=== PATIENT | male | born 1955 | race African-American/Black ===

== ENCOUNTER 2022-09-06 05:20 | Inpatient (IN) | payer OTHER ==
[~2022-09-06] VITALS: Ht 180.3 cm; Wt 103.9 kg
[2022-09-06] VITALS (23 sets, daily range): BP systolic 94–173; BP diastolic 39–82
--- NOTE | 2022-09-06 05:20 | NUR ---
PT BIBA ALS. TAKEN TO BED 10. DR. MAC AND RT AT BEDSIDE
--- NOTE | 2022-09-06 05:20 | NUR ---
Patient BIB by ALS from home. C/O respiratory arrest x today. Per reported, family called and arrived at home ~ 0455 AM, Alfred cardia ~ 40 and Oxygen sat 74 %, Bagging increase to 90 %, no medication given at the scence, started IV 20 left hand. PMHx: CHF, HTN, HLD
--- NOTE | 2022-09-06 05:20 | NUR ---
Etomidate 20 mg IV push as verbal order by Dr. Gonsales.
--- NOTE | 2022-09-06 05:20 | NUR ---
05.10 AM Arrived at ER and placed to bed 10.
--- NOTE | 2022-09-06 05:21 | NUR ---
Succinylcholine 100 mg IV push as verbal order by Dr. Gonsales
--- NOTE | 2022-09-06 05:28 | NUR ---
Intubation placement size 7.[address] Gonsales
--- NOTE | 2022-09-06 05:37 | NUR ---
X-Ray at bedside.
[2022-09-06] MEDS ORDERED: LORazepam 2 MG/ML VIAL ONE (05:39)
[2022-09-06] MEDS ORDERED: LORazepam 2 MG/ML VIAL IVP ONE (05:40)
[2022-09-06] MEDS ORDERED: fentaNYL citrate 0.05 MG/ML VIAL ONE (05:40)
[2022-09-06] MEDS ORDERED: fentaNYL citrate 0.05 MG/ML VIAL IVP ONE (05:40)
[2022-09-06] MEDS ORDERED: PROPOFOL 1000 MG/100 ML PREMIX 100 ML IV ONE ×2 (05:40→05:41)
[2022-09-06 05:48] LABS: BASOPHILS # (AUTO) 0.1 K/uL (0.00-0.22); BASOPHILS % (AUTO) 0.5 % (0.0-2.0); EOSINOPHILS % (AUTO) 0.3 % (0.0-4.0); HEMATOCRIT 34.8 % (36-52); HEMOGLOBIN 11.2 g/dL (12.0-18.0); LYMPHOCYTES # (AUTO) 3.6 K/uL (2.0-11.5); LYMPHOCYTES % (AUTO) 30.6 % (20.5-51.1); MEAN CORPUSCULAR HEMOGLOBIN 26 pg (27-31); MEAN CORPUSCULAR HGB CONC 32 g/dL (33-37); MEAN CORPUSCULAR VOLUME 79.8 fL (80-94); MONOCYTES # (AUTO) 0.5 K/uL (0.8-1.0); NEUTROPHILS # (AUTO) 7.6 K/uL (1.8-7.7); NEUTROPHILS % (AUTO) 64.6 % (42.2-75.2); PLATELET COUNT (AUTO) 169 K/uL (140-450); RED BLOOD CELL COUNT(AUTO) 4.37 MIL/uL (4.20-6.10); RED CELL DISTRIBUTION WIDTH 16.3 % (11.6-13.7); WHITE BLOOD COUNT (AUTO) 11.8 K/uL (4.8-10.8)
[2022-09-06] MEDS ORDERED: ISOS30TE68 PO (05:52)
[2022-09-06] MEDS ORDERED: FURO-570 PO (05:52)
[2022-09-06] MEDS ORDERED: ATOR40TA PO (05:52)
[2022-09-06] MEDS ORDERED: LON2.5 PO (05:52)
[2022-09-06] MEDS ORDERED: AMLO5TAB PO (05:52)
[2022-09-06] MEDS ORDERED: CARV25TA PO (05:52)
[2022-09-06] MEDS ORDERED: POTA10TA70 PO (05:53)
[2022-09-06] MEDS ORDERED: SUCCINYLCHOLINE CHLORIDE 200 MG/10 ML VIAL IVP ONE (06:00)
[2022-09-06] MEDS ORDERED: ETOMIDATE 20 MG/10 ML VIAL IVP ONE (06:00)
[2022-09-06 06:31] LABS: ANION GAP 10.8 (8-16); CARBON DIOXIDE 33.9 mmol/L (21-32); POTASSIUM 4.7 mmol/L (3.5-5.1)
[2022-09-06 06:32] LABS: CREATININE 1.5 mg/dL (0.6-1.3); TOTAL BILIRUBIN 0.8 mg/dL (0.0-1.0)
[2022-09-06 06:42] LABS: APPEARANCE,URINE CLEAR (CLEAR); BILIRUBIN,URINE NEGATIVE (NEGATIVE); BLOOD, URINE TRACE-I (NEGATIVE); COLOR,URINE YELLOW (YELLOW); LEUKOCYTE ESTERASE ,URINE NEGATIVE (NEGATIVE); NITRITE, URINE NEGATIVE (NEGATIVE); UGLUCOSE NEGATIVE (NEGATIVE)
[2022-09-06] MEDS ORDERED: MAG SULF 2000 MG/WATER PREMIX 50 ML IV PRN (06:50)
[2022-09-06] MEDS ORDERED: ONDANSETRON 4 MG/2 ML VIAL IVP PRN (06:50)
[2022-09-06] MEDS ORDERED: ZOLPIDEM 10 MG TAB PO PRN (06:50)
[2022-09-06] MEDS ORDERED: DOCUSATE SODIUM 100 MG GELCAP PO PRN (06:50)
[2022-09-06] MEDS ORDERED: POTASSIUM CHLORIDE 10 MEQ TABER PO PRN (06:50)
[2022-09-06] MEDS ORDERED: LORazepam 2 MG/ML VIAL IVP PRN (06:50)
[2022-09-06] MEDS ORDERED: MORPHINE SULFATE 2 MG/ML SYR IVP PRN (06:50)
--- NOTE | 2022-09-06 07:01 | NUR ---
Dr. Gonsales examining patient.
[2022-09-06] MEDS ORDERED: NOREPINEPHRINE 4 MG in DEXTROSE 5% 250 ML IV PRN (07:15)
--- NOTE | 2022-09-06 07:15 | NUR ---
spoke to dr michelle for patient blood pressure since it is borderline, she said that she will order fentayl for sedation and levo for he blood presure her self in the [place].
[2022-09-06] MEDS ORDERED: fentaNYL citrate 1 MG in NACL 0.9% 80 ML IV PRN (07:20)
[2022-09-06 07:36] LABS: ALBUMIN 3.9 g/dL (3.4-5.0)
[2022-09-06 07:44] LABS: LIPASE 59 U/L (73-393)
--- NOTE | 2022-09-06 08:00 | NUR ---
Report given to receiving RN. ANGELA. Pt transported via [facility].
--- NOTE | 2022-09-06 08:06 | NUR ---
RECEIVED BEDSIDE REPORT FROM NUTRITION INTERNSHIP, AGUILAR, FOR CONTINUITY OF CARE. PT SEDATED ON PROPOFOL, OPENS EYES TO STIMULI. DOES NOT FOLLOW COMMANDS. PERRL, PUPILS 2MM. MODERATE AGITATION. ETT TO VENT. 7.5MM TAPED AT 27CM @ THE LIP. AC/VC FIO2 100%, VT 550, RR 16, PEEP 5. SR ON MONITOR. 20G IV TO R HAND SALINE LOCK. 18G IV TO L HAND INFUSING PROPOFOL AT 5 MCG/KG/MIN. OGT IN PLACE, CLAMPED. F/C TO GRAVITY. MODERATE WEAKNESS THROUGHOUT. HOB 30 DEGREES, BED LOCKED AND IN LOWEST POSITION. BILATERAL SOFT WRIST RESTRAINTS IN PLACE FOR SAFETY. STANDARD PRECAUTION.
--- NOTE | 2022-09-06 08:10 | NUR ---
RCVD PATIENT ON AC VC 550 F 16, PEEP +5, AND FIO2 100%. PATIENT TRANSPORTED TO ICU. NO RESPIRATORY EVENTS OCCURRED ON TRANSPORT AMBU BAG ON HAND. VENT PLUGGED INTO RED OUTLET.
[2022-09-06] MEDS: PROPOFOL 1000 MG/100 ML PREMIX 100 ML IV PRN ×4 (08:39→23:09)
[2022-09-06] MEDS: amLODIPine 5 MG TAB PO SCH (09:00)
--- NOTE | 2022-09-06 09:00 | NUR ---
SEEN AND EXAMINED BY DR. BARCENAS. ORDERS RECEIVED.
--- NOTE | 2022-09-06 09:16 | NUR ---
PATIENT HAS BEEN SCREENED AND CATEGORIZED HIGH NUTRITION RISK. PATIENT WILL BE SEEN WITHIN 1-2 DAYS OF ADMISSION. REVIEWED BY ANNE BRUCE RD Addendum: 09/06/22 at [address] [facility] REFERRAL RECEIVED FOR "INTUBATED" ON 09/06/22.
[2022-09-06] MEDS: FUROSEMIDE 40 MG/4 ML VIAL IVP SCH (09:21)
[2022-09-06] MEDS: BLOOD GLUCOSE MONITORING 1 DEV DEV FS SCH ×2 (11:56→18:13)
--- NOTE | 2022-09-06 12:10 | NUR ---
SEEN AND EXAMINED BY DR. SANCHEZ. NO NEW ORDERS AT THIS TIME.
[2022-09-06] MEDS: PIPERACILLIN/TAZOBACTAM 3.375 GM in DEXTROSE 5% 50 ML IV SCH ×2 (12:24→21:34)
[2022-09-06] MEDS: ALBUTEROL 0.083% 2.5 MG/3 ML NEBU INH PRN (12:56)
--- NOTE | 2022-09-06 14:30 | NUR ---
PICC NURSE SHELLY AT BEDSIDE FOR PICC PLACEMENT.
--- NOTE | 2022-09-06 14:40 | NUR ---
09/06/22 RD INITIAL ASSESSMENT COMPLETED PLEASE REFER TO NUTRITION ASSESSMENT UNDER CARE ACTIVITY FOR ESTIMATED NUTRITIONAL NEEDS. 1. MONITOR NPO STATUS 2. WHEN/IF MEDICALLY APPROPRIATE TO START TF, RECOMMEND VITAL AF 1.2 AT GOAL RATE 65 ML/HR, FWF 150 ML Q6H TOLERATED - WITH PROPOFOL AT CURRENT RATE (3.5 ML/HR), PROVIDES 1560 ML TOTAL VOLUME, 1964 KCAL, 117 GM PROTEIN AND 1863 ML FREE WATER DAILY MEETING 100% ESTIMATED KCAL NEEDS AND 90% ESTIMATED PROTEIN NEEDS; ADEQUATE - START TF AT 1O ML/HR INCREASE BY 1O ML Q4H UNTIL GOAL IS REACHED TOLERATED 3. RECOMMEND SWALLOW EVAL BEFORE ADVANCING DIET IF PT EXTUBATED 4. IF/WHEN MEDICALLY APPROPRIATE, RECOMMEND CARDIAC DIET WITH TEXTURE MODIFICATIONS PER ST SWALLOW EVAL RECOMMENDATIONS TOLERATED 5. CONSULT RD PRN 6. RD TO FOLLOW-UP 2-3 DAYS, HIGH RISK REVIEWED BY ANNE BRUCE RD
--- NOTE | 2022-09-06 15:42 | NUR ---
DC PLANNING A 66 YEAR OLD MALE PATIENT PRESENTED TO ER FOR DIFFICULTY OF BREATHING WITH LOW SATURATION.HX OF CHF,HTN AND HYPERCHOLESTERINEMIA.INTUBATED. ON PROPOFOL DRIP.DAXSYSid ON BOARD.PULMO AND CARDIO FOLLOWING.CM TO FOLLOW.
[2022-09-06] MEDS: ACETAMINOPHEN 325 MG TAB PO PRN (15:57)
--- NOTE | 2022-09-06 15:57 | NUR ---
TEMP 101.1. ADMINISTERED TYLENOL PO AND ICE PACKS FOR COOLING MEASURES.
--- NOTE | 2022-09-06 19:14 | NUR ---
ENDORSED BEDSIDE REPORT TO ADJUNCT FACULTY DIRECTOR OF LABOR RELATIONSENRIQUETA, FOR CONTINUITY OF CARE.
[2022-09-07] VITALS (30 sets, daily range): BP systolic 105–135; BP diastolic 47–93
[2022-09-07] MEDS: BLOOD GLUCOSE MONITORING 1 DEV DEV FS SCH ×5 (00:11→23:40)
[2022-09-07] MEDS: PIPERACILLIN/TAZOBACTAM 3.375 GM in DEXTROSE 5% 50 ML IV SCH ×3 (04:58→21:47)
[2022-09-07 05:51] LABS: BASOPHILS % (AUTO) 0.3 % (0.0-2.0); EOSINOPHILS % (AUTO) 0.3 % (0.0-4.0); HEMATOCRIT 34.2 % (36-52); HEMOGLOBIN 11.3 g/dL (12.0-18.0); LYMPHOCYTES # (AUTO) 1.6 K/uL (2.0-11.5); LYMPHOCYTES % (AUTO) 14.9 % (20.5-51.1); MEAN CORPUSCULAR HEMOGLOBIN 26 pg (27-31); MEAN CORPUSCULAR HGB CONC 33 g/dL (33-37); MEAN CORPUSCULAR VOLUME 77.8 fL (80-94); MONOCYTES # (AUTO) 1.1 K/uL (0.8-1.0); MONOCYTES % (AUTO) 10.7 % (1.7-9.3); NEUTROPHILS # (AUTO) 7.7 K/uL (1.8-7.7); NEUTROPHILS % (AUTO) 73.8 % (42.2-75.2); PLATELET COUNT (AUTO) 133 K/uL (140-450); RED BLOOD CELL COUNT(AUTO) 4.39 MIL/uL (4.20-6.10); RED CELL DISTRIBUTION WIDTH 16.3 % (11.6-13.7); WHITE BLOOD COUNT (AUTO) 10.5 K/uL (4.8-10.8)
[2022-09-07 06:45] LABS: ANION GAP 14.5 (8-16); CREATININE 1.6 mg/dL (0.6-1.3); POTASSIUM 3.5 mmol/L (3.5-5.1)
--- NOTE | 2022-09-07 07:15 | NUR ---
RECEIVED BEDSIDE REPORT FROM GERONIMO ROBISON RN FOR CONTINUITY OF CARE. PT SEDATED ON PROPOFOL, OPENS EYES TO STIMULI. DOES NOT FOLLOW COMMANDS. ETT TO VENT. 7.5MM TAPED AT 27CM @ THE LIP. AC/VC FIO2 28%, VT 550, RR 16, PEEP 5. SR ON MONITOR. 20G IV TO R HAND SALINE LOCK. 22 G IV TO L HAND SALINE LOCK. PICC TO DOMINIK, INFUSING PROPOFOL AT 30 MCG/KG/MIN, LEVO @2 MCG/MIN. OGT IN PLACE, CLAMPED. F/C TO GRAVITY. MODERATE WEAKNESS THROUGHOUT. HOB 30 DEGREES, BED LOCKED AND IN LOWEST POSITION. BILATERAL SOFT WRIST RESTRAINTS IN PLACE FOR SAFETY. STANDARD PRECAUTION.
--- NOTE | 2022-09-07 07:44 | NUR ---
RECEIVED ON A SnoballAPE R860 VENTILATOR PLUGGED INTO RED OUTLET TOLERATING WELL WITHOUT ADVERSE REACTIONS NOTED TO AN ENDOTRACHEAL TUBE #7.5 SECURED AT 27cm TEETH/GUM LINE WITH AN ANCHOR FAST CUFF PRESSURE CHECKED NOTED AMBU BAG AT BEDSIDE SEDATED RESTING COMFORTABLY EQUAL CHEST RISE DEEP TRACHEAL SUCTION FOR MODERATE SEMI THICK YELLOW SECRETIONS AIRWAY PATENT
--- NOTE | 2022-09-07 08:00 | NUR ---
FAMILY/ AT BEDSIDE. UPDATED PT INFORMATION.
[2022-09-07] MEDS: PANTOPRAZOLE 40 MG INJ VIAL IVP SCH (08:12)
[2022-09-07] MEDS: FUROSEMIDE 40 MG/4 ML VIAL IVP SCH (08:15)
[2022-09-07] MEDS: amLODIPine 5 MG TAB PO SCH ×2 (08:15→09:00)
[2022-09-07] MEDS: PROPOFOL 1000 MG/100 ML PREMIX 100 ML IV PRN ×3 (08:30→18:36)
--- NOTE | 2022-09-07 08:36 | NUR ---
SEEN AND EXAMINED BY DR BARCENAS. ORDERS RECEIVED. START TUBE FEEDING PER DIETITIAN RECOMMENDATION.
--- NOTE | 2022-09-07 10:36 | NUR ---
SEEN AND EXAMINED BY DR SANCHEZ. NEW ORDER RECEIVED.
--- NOTE | 2022-09-07 10:48 | NUR ---
SEDATED RESTING COMFORTABLY GOOD CHEST RISE ENDOTRACHEAL SUCTION FOR SMALL THIN PALE YELLOW SECRETIONS AIRWAY PATENT
[2022-09-07] MEDS: ACETAMINOPHEN 325 MG TAB PO PRN (12:00)
[2022-09-07] MEDS: ALBUTEROL 0.083% 2.5 MG/3 ML NEBU INH PRN ×2 (12:46→22:02)
--- NOTE | 2022-09-07 13:29 | NUR ---
SEDATED STABLE NO DISTRESS NOTED EQUAL CHEST RISE AIRWAY PATENT
--- NOTE | 2022-09-07 15:46 | NUR ---
DC PLANNING ASSESSMENT COMPLETE PLEASE REFER TO ASSESSMENT FOR ADDITIONAL DETAILS RADHA SPRINGER TENTATIVE DC PLAN IS FOR PT TO RETURN HOME PENDING PHYSICIANS RECOMMENDATIONS. SW/ CM TO FOLLOW NEEDED. Addendum: 09/07/22 at 1547 by Maureen Hedrick SS Amended: Links added.
--- NOTE | 2022-09-07 15:53 | NUR ---
STABLE EQUAL CHEST RISE ENDOTRACHEAL SUCTION FOR LARGE SEMI THICK YELLOW SECRETIONS AIRWAY PATENT
--- NOTE | 2022-09-07 19:19 | NUR ---
ENDORSED TO CASH REGISTER SERVICER ENRIQUETA RN FOR CONTINUITY OF CARE. ALL QUESTION ANSWERED.
[2022-09-07] MEDS ORDERED: DEXTROSE 50% 50 ML SYR IVP PRN (19:45)
--- NOTE | 2022-09-07 22:59 | NUR ---
RT CONTACTED DUE TO SOUNDS PT IS MAKING WHICH SOUNDS LIKE CUFF LEAK. CHEST XRAY ORDERED AND FOUND THAT THE ET TUBE NEEDED TO BE ADVANCED ALL THE WAY TO 29 AT LIP
--- NOTE | 2022-09-07 23:05 | NUR ---
PT HAD LEAK IN ET CUFF. TUBE WAS AT 25CM. XRAY CAME AND TOOK PICTURE. TUBE WAS 5CM ABOVE LITO. PUSHED TUBE TO 29CM. POST XRAY TUBE WAS 3CM ABOVE LITO. NO LEAK NOW AND PT GETTING GOOD VOLUMES ON VENT
[2022-09-08] VITALS (32 sets, daily range): BP systolic 91–143; BP diastolic 46–89
[2022-09-08] MEDS: PROPOFOL 1000 MG/100 ML PREMIX 100 ML IV PRN ×2 (02:11→02:14)
[2022-09-08 05:18] LABS: CARBON DIOXIDE 32.6 mmol/L (21-32); CREATININE 1.7 mg/dL (0.6-1.3); POTASSIUM 3.6 mmol/L (3.5-5.1)
[2022-09-08 05:26] LABS: BASOPHILS # (AUTO) 0.1 K/uL (0.00-0.22); BASOPHILS % (AUTO) 0.4 % (0.0-2.0); EOSINOPHILS # (AUTO) 0.1 K/uL (0-0.4); EOSINOPHILS % (AUTO) 0.9 % (0.0-4.0); HEMOGLOBIN 11.5 g/dL (12.0-18.0); LYMPHOCYTES # (AUTO) 2.5 K/uL (2.0-11.5); LYMPHOCYTES % (AUTO) 17.3 % (20.5-51.1); MEAN CORPUSCULAR HEMOGLOBIN 25 pg (27-31); MEAN CORPUSCULAR HGB CONC 32 g/dL (33-37); MEAN CORPUSCULAR VOLUME 78.8 fL (80-94); MONOCYTES # (AUTO) 2.4 K/uL (0.8-1.0); MONOCYTES % (AUTO) 16.4 % (1.7-9.3); NEUTROPHILS # (AUTO) 9.4 K/uL (1.8-7.7); PLATELET COUNT (AUTO) 139 K/uL (140-450); RED BLOOD CELL COUNT(AUTO) 4.57 MIL/uL (4.20-6.10); WHITE BLOOD COUNT (AUTO) 14.4 K/uL (4.8-10.8)
[2022-09-08] MEDS: PIPERACILLIN/TAZOBACTAM 3.375 GM in DEXTROSE 5% 50 ML IV SCH ×3 (05:32→20:46)
[2022-09-08] MEDS: BLOOD GLUCOSE MONITORING 1 DEV DEV FS SCH ×3 (05:33→17:43)
--- NOTE | 2022-09-08 07:15 | NUR ---
RECEIVED BEDSIDE REPORT FROM GERONIMO ROBISON RN FOR CONTINUITY OF CARE. PT SEDATED ON PROPOFOL, OPENS EYES TO STIMULI. DOES NOT FOLLOW COMMANDS. ETT TO VENT. 7.5MM TAPED AT 27CM @ THE LIP. AC/VC FIO2 28%, VT 550, RR 16, PEEP 5. SR ON MONITOR. 22 G IV TO L HAND SALINE LOCK. PICC TO DOMINIK, INFUSING PROPOFOL AT 30 MCG/KG/MIN, TKO NS@3ML/HR. OGT IN PLACE, RUNNING VITAL AF 1.2, 65MLS/HR, FWF 150 Q6H. F/C TO GRAVITY. MODERATE WEAKNESS THROUGHOUT. HOB 30 DEGREES, BED LOCKED AND IN LOWEST POSITION. BILATERAL SOFT WRIST RESTRAINTS IN PLACE FOR SAFETY. STANDARD PRECAUTION.
[2022-09-08] MEDS: PANTOPRAZOLE 40 MG INJ VIAL IVP SCH (08:20)
[2022-09-08] MEDS: FUROSEMIDE 40 MG/4 ML VIAL IVP SCH (08:20)
[2022-09-08] MEDS: ACETAMINOPHEN 325 MG TAB PO PRN ×2 (08:21→15:52)
[2022-09-08] MEDS: amLODIPine 5 MG TAB PO SCH (08:23)
--- NOTE | 2022-09-08 09:50 | NUR ---
FAMILY/ AT BEDSIDE. UPDATED PT INFORMATION
--- NOTE | 2022-09-08 10:40 | NUR ---
SEEN AND EXAMINED BY DR GRANADO. UPDATED PT INFORMATION. NO NEW ORDER.
--- NOTE | 2022-09-08 11:07 | NUR ---
PT HAD A SMALL AMOUNT OF PINKISH MUCUS BM OUTPUT.
--- NOTE | 2022-09-08 11:20 | NUR ---
DR NEUMANN ROUNDING AT BEDSIDE. UPDATED PT INFORMATION. NEW ORDER RECEIVED.
[2022-09-08] MEDS: DEXMEDETOMIDINE HCL 400 MCG in NACL 0.9% 96 ML IV PRN (13:03)
--- NOTE | 2022-09-08 19:10 | NUR ---
ENDORSED TO NATURE PHOTOGRAPHER CHIQUI BAJWA FOR CONTINUITY OF CARE. ALL QUESTIONS ANSWERED.
--- NOTE | 2022-09-08 19:15 | NUR ---
TRANSFER OF CARE FROM [facility], REPORT RECEIVED FROM KATHY Finnegan RN. PATIENT RECEIVED INTUBATED PARTIALLY SEDATED WITH ETT TO VENT, THAT HAS THE CURRENT SETTINGS: AC/PRVC, FIO2 = 28%, VT = 550, R = 16, PEEP = 5. PATIENT HAS DOMINIK PICC LINE WITH THE FOLLOWING MEDICATION INFUSING: PRECEDEX 400MCG AT 0.3MCG/KG/HR. PATIENT HAS OG TUBE WITH THE FOLLOWING FORMULA RUNNING: VITAL AF 1.2 @ 65ML/HR WITH 150ML WATER FLUSH Q6. PATIENT IS AROUSABLE, ALERT AND ABLE TO FOLLOW COMMANDS. PATIENT HAS SILVA IN PLACE, AND SKIN IS INTACT. WILL CONTINUE TO MONITOR THIS PATIENT FOR ANY CHANGE IN CONDITION AND NOTIFY RIGHT AWAY. Addendum: 09/08/22 at 2126 by Louann Gold RN PATIENT HAS DOMINIK PICC LINE AND 18G PERIPHERAL LINE IN THE LEFT HAND
--- NOTE | 2022-09-08 20:15 | NUR ---
RT AT BEDSIDE, NO CHANGE TO VENT SETTINGS
--- NOTE | 2022-09-08 23:31 | NUR ---
PATIENT AWAKE, ABLE TO NOD HEAD TO YES AND NO QUESTIONS. CURRENTLY DENIES COMPLAINTS EASILY FALLS BACK TO SLEEP
[2022-09-09] VITALS (29 sets, daily range): BP systolic 88–161; BP diastolic 43–86
[2022-09-09] MEDS: BLOOD GLUCOSE MONITORING 1 DEV DEV FS SCH ×5 (00:21→23:55)
[2022-09-09] MEDS: DEXMEDETOMIDINE HCL 400 MCG in NACL 0.9% 96 ML IV PRN (00:27)
[2022-09-09] MEDS: PIPERACILLIN/TAZOBACTAM 3.375 GM in DEXTROSE 5% 50 ML IV SCH ×3 (05:34→19:59)
[2022-09-09 05:43] LABS: BASOPHILS % (AUTO) 0.3 % (0.0-2.0); EOSINOPHILS # (AUTO) 0.1 K/uL (0-0.4); EOSINOPHILS % (AUTO) 0.8 % (0.0-4.0); HEMATOCRIT 33.7 % (36-52); HEMOGLOBIN 10.8 g/dL (12.0-18.0); LYMPHOCYTES # (AUTO) 1.5 K/uL (2.0-11.5); LYMPHOCYTES % (AUTO) 11.4 % (20.5-51.1); MEAN CORPUSCULAR HEMOGLOBIN 25 pg (27-31); MEAN CORPUSCULAR HGB CONC 32 g/dL (33-37); MEAN CORPUSCULAR VOLUME 77.8 fL (80-94); MONOCYTES # (AUTO) 0.9 K/uL (0.8-1.0); MONOCYTES % (AUTO) 6.8 % (1.7-9.3); NEUTROPHILS # (AUTO) 10.9 K/uL (1.8-7.7); NEUTROPHILS % (AUTO) 80.7 % (42.2-75.2); PLATELET COUNT (AUTO) 136 K/uL (140-450); RED BLOOD CELL COUNT(AUTO) 4.33 MIL/uL (4.20-6.10); RED CELL DISTRIBUTION WIDTH 16.3 % (11.6-13.7); WHITE BLOOD COUNT (AUTO) 13.5 K/uL (4.8-10.8)
[2022-09-09 06:15] LABS: ANION GAP 12.7 (8-16); CARBON DIOXIDE 31.4 mmol/L (21-32); CREATININE 1.6 mg/dL (0.6-1.3); POTASSIUM 3.1 mmol/L (3.5-5.1)
--- NOTE | 2022-09-09 07:15 | NUR ---
RECEIVED BEDSIDE REPORT FROM GERONIMO FLORIAN RN FOR CONTINUITY OF CARE. PT SEDATED ON PRECEDEX, OPENS EYES TO STIMULI. FOLLOW COMMANDS. ETT TO VENT. 7.5MM TAPED AT 27CM @ THE LIP. A/C PRVC FIO2 28%, VT 550, RR 16, PEEP 5. SR ON MONITOR. 22 G IV TO L HAND SALINE LOCK. PICC TO DOMINIK, INFUSING PRECEDEX @ 0.3MCG/KG/H. OGT IN PLACE, RUNNING VITAL AF 1.2, 65MLS/HR, FWF 150 Q6H. F/C TO GRAVITY. MODERATE WEAKNESS THROUGHOUT. HOB 30 DEGREES, BED LOCKED AND IN LOWEST POSITION. BILATERAL SOFT WRIST RESTRAINTS IN PLACE FOR SAFETY. STANDARD PRECAUTION.
--- NOTE | 2022-09-09 07:20 | NUR ---
PT PLACED ON SPONTANEOUS BREATHING TRIAL WITH PRESSURE SUPPORT OF 5 WITH PEEP OF 5. PT ALARM SETTINGS SET AND AUDIBLE TO NURSE STATION.
--- NOTE | 2022-09-09 07:23 | NUR ---
TRANSFER OF CARE TO [facility], REPORT ENDORSED TO RN
--- NOTE | 2022-09-09 07:25 | NUR ---
SBT STARTED AT BEDSIDE. PT TOLERATED WELL.
--- NOTE | 2022-09-09 07:58 | NUR ---
CXR DONE AT BEDSIDE. PT TOLERATED WELL.
[2022-09-09] MEDS: PANTOPRAZOLE 40 MG INJ VIAL IVP SCH (08:28)
[2022-09-09] MEDS: FUROSEMIDE 40 MG/4 ML VIAL IVP SCH (08:29)
[2022-09-09] MEDS: POTASSIUM CHLORIDE 20% 40 MEQ/15 ML UDC GT PRN (08:29)
[2022-09-09] MEDS: amLODIPine 5 MG TAB PO SCH (08:35)
--- NOTE | 2022-09-09 09:23 | NUR ---
2HR SBT DONE. PT TOLERATED WELL.
[2022-09-09] MEDS: ACETAMINOPHEN 325 MG TAB PO PRN (10:01)
--- NOTE | 2022-09-09 12:50 | NUR ---
DR GRANADO ROUNDING AT BEDSIDE. UPDATED PT INFORMATION. NO NEW ORDER.
--- NOTE | 2022-09-09 12:55 | NUR ---
DR NEUMANN ROUNDSHERIF AT BEDSIDE. UPDATED PT INFORMATION. ORDER TO EXTUBATE PT AND SWALLOW EVAL AFTER 24H.
--- NOTE | 2022-09-09 13:00 | NUR ---
PT EXTUBATED BY RT PER DR NEUMANN ORDER. PT TOLERATE WELL. ON 2L NC, O2 SAT 100%, HR 69, RR 20, BP 151/61. NO S/S OF ACUTE RESPIRATORY DISTRESS.
--- NOTE | 2022-09-09 13:00 | NUR ---
PT EXTUBATED PER MD NEUMANN Addendum: 09/09/22 at 1321 by LAURITA MANSFIELD RT PT EXTUBATED PER MD NEUMANN, PT PLACED ON 2L NC. Q4 TREATMENTS ORDERED. PT IN NO RESPIRATORY DISTRESS. WILL CONTINUE TO MONITOR
--- NOTE | 2022-09-09 14:08 | NUR ---
09/09/22 RD FOLLOW UP COMPLETED.PLEASE REFER TO NUTRITION ASSESSMENT UNDER CARE ACTIVITY FOR ESTIMATED NUTRITIONAL NEEDS. 1.CONTINUE VITAL AF 1.2 AT 65 ML/HR, FWF 150 ML Q6H TOLERATED. THIS WILL PROVIDE 1560 ML VOLUME, 1872 KCAL, 117 GRAMS PROTEIN, AND 1865 ML FREE WATER (WITH FWF) MEETING 99% OF ESTIMATED KCAL AND 91% OF ESTIMATED PROTEIN NEEDS; ADEQUATE. 2. RECOMMEND SWALLOW EVAL BEFORE ADVANCING DIET IF PT EXTUBATED 3. IF/WHEN MEDICALLY APPROPRIATE, RECOMMEND CARDIAC DIET WITH TEXTURE MODIFICATIONS PER ST SWALLOW EVAL RECOMMENDATIONS TOLERATED 4. RD TO FOLLOW-UP IN 2-3 DAYS PATIENT IS HIGH RISK. JULIO TOWNSEND RD
[2022-09-09] MEDS: IPRATROPIUM 0.02% 0.5 MG/2.5 ML NEBU INH SCH ×3 (14:24→22:02)
[2022-09-09] MEDS: ALBUTEROL 0.083% 2.5 MG/3 ML NEBU INH SCH ×3 (14:24→22:02)
--- NOTE | 2022-09-09 17:54 | NUR ---
SEEN AND EXAMINED BY DR POP. UPDATED PT INFORMATION.
--- NOTE | 2022-09-09 19:21 | NUR ---
ENDORSED TO [employer] SALESPERSON TAMMIE RN FOR CONTINUITY OF CARE. ALL QUESTIONS ANSWERED.
[2022-09-10] VITALS (15 sets, daily range): BP systolic 117–162; BP diastolic 57–79
[2022-09-10] MEDS: IPRATROPIUM 0.02% 0.5 MG/2.5 ML NEBU INH SCH ×5 (03:14→19:20)
[2022-09-10] MEDS: ALBUTEROL 0.083% 2.5 MG/3 ML NEBU INH SCH ×5 (03:15→19:20)
[2022-09-10] MEDS: PIPERACILLIN/TAZOBACTAM 3.375 GM in DEXTROSE 5% 50 ML IV SCH ×3 (04:10→21:14)
[2022-09-10] MEDS: BLOOD GLUCOSE MONITORING 1 DEV DEV FS SCH ×3 (05:36→18:14)
[2022-09-10 06:09] LABS: BASOPHILS % (AUTO) 0.2 % (0.0-2.0); EOSINOPHILS # (AUTO) 0.2 K/uL (0-0.4); EOSINOPHILS % (AUTO) 1.3 % (0.0-4.0); HEMATOCRIT 35.9 % (36-52); HEMOGLOBIN 11.2 g/dL (12.0-18.0); LYMPHOCYTES # (AUTO) 2.3 K/uL (2.0-11.5); LYMPHOCYTES % (AUTO) 14.6 % (20.5-51.1); MEAN CORPUSCULAR HEMOGLOBIN 25 pg (27-31); MEAN CORPUSCULAR HGB CONC 31 g/dL (33-37); MONOCYTES # (AUTO) 1.2 K/uL (0.8-1.0); MONOCYTES % (AUTO) 7.4 % (1.7-9.3); NEUTROPHILS # (AUTO) 12.1 K/uL (1.8-7.7); NEUTROPHILS % (AUTO) 76.5 % (42.2-75.2); PLATELET COUNT (AUTO) 161 K/uL (140-450); RED BLOOD CELL COUNT(AUTO) 4.49 MIL/uL (4.20-6.10); RED CELL DISTRIBUTION WIDTH 16.1 % (11.6-13.7); WHITE BLOOD COUNT (AUTO) 15.8 K/uL (4.8-10.8)
[2022-09-10 06:14] LABS: ANION GAP 11.3 (8-16); CARBON DIOXIDE 33.7 mmol/L (21-32); CREATININE 1.4 mg/dL (0.6-1.3)
--- NOTE | 2022-09-10 07:30 | NUR ---
RECEIVED PT IN HOSPITAL BED AOX4. 3L NC SATURATION 95%. BREATHING UNLABORED. IV INTACT AND PATENT SL. NSR ON MONITOR. NAD. SAFETY MAINTAINED.
[2022-09-10] MEDS: amLODIPine 5 MG TAB PO SCH (09:00)
--- NOTE | 2022-09-10 09:30 | NUR ---
PT HAD EPISODE OF LOOSE STOOL , CLEANED AND REPOSITIONED. NSR ON MONITOR. REMAINS NPO PENDING SWALLOW EVAL.
[2022-09-10] MEDS: FUROSEMIDE 40 MG/4 ML VIAL IVP SCH (09:47)
[2022-09-10] MEDS: PANTOPRAZOLE 40 MG INJ VIAL IVP SCH (09:47)
--- NOTE | 2022-09-10 11:44 | NUR ---
PT. WITH LOW EDMUNDO SCALE AT HIGH RISK, CONTINUE TO FOLLOW PRESSURE INJURY PREVENTION INTERVENTIONS. -POSITIONING: TURN AND REPOSITION PATIENT Q 2H OR SOONER USE PILLOWS TO KEEP BONY PROMINENCES FROM DIRECT CONTACT WITH SURFACES USE REPOSITIONING WEDGES TO PROVIDE 30-DEGREE ANGLE FOR SIDE LYING POSITIONS OFFLOADING OR FOAM DRESSING TO ALL TUBING TO PREVENT MEDICAL DEVICES RELATED PRESSURE INJURY -RE-EVALUATING AND MANAGING INCONTINENCE MONITOR SKIN CONDITION DURING POSITION CHANGE DO NOT MASSAGE REDNESS, BONY PROMINENCES FREQUENT HERIBERTO-CARE AND PROVIDE BARRIER CREAMS PRN IF SOILING MOISTURE CONTROL BY OFFER BED MONGE/URINAL /ABSORBENT PAD TO WICK AND HOLD MOISTURE KEEP SKIN DRY AND PROTECT FROM FRICTION -MANAGE FRICTION/SHEAR/MOBILITY KEEP HOB AT THE LOWEST LEVEL OF ELEVATION NO MORE THAN 30 DEGREE UNLESS OTHERWISE CONTRAINDICATED USE LIFT SHEET OR TRANSFER DEVICE TO MOVE PATIENT AND PREVENT LATERAL SHEER. PROTECT HEELS, ELBOWS BONY PROMINENCES WITH SKIN BERRIES OR FOAM DRESSING IF EXPOSED TO FRICTION OFFLOAD BILATERAL HEELS BY PLACING PILLOWS UNDER CALVES AT ALL TIMES, UNLESS OTHERWISE CONTRAINDICATED -PRESSURE REDISTRIBUTION SURFACE THERAPY RON ISOFLEX MATTRESS -NUTRITION: PLEASE FOLLOW RD RECOMMENDATIONS AND OFFER NUTRITION SUPPLEMENTS IF ORDERED. PLEASE CONTACT WOUND CARE NURSE FOR ANY QUESTION AND CHANGE OF WOUND CONDITION.
--- NOTE | 2022-09-10 12:00 | NUR ---
PT RESTING IN BED NO CHANGES NOTED.
--- NOTE | 2022-09-10 13:00 | NUR ---
SPOKE TO GURMEET FROM PT WHO STATES SPEECH THERAPIST WILL COME LATE AFTERNOON FOR SWALLOW EVAL. PT AND FAMILY MADE AWARE.
--- NOTE | 2022-09-10 14:30 | NUR ---
DR DAVIES AT BEDSIDE. NO NEW ORDERS NOTED.
[2022-09-10] MEDS: POTASSIUM CHLORIDE 20% 40 MEQ/15 ML UDC GT PRN (15:00)
--- NOTE | 2022-09-10 15:00 | NUR ---
PT RESTING IN BED NO CHANGES NOTED
--- NOTE | 2022-09-10 16:58 | NUR ---
PT INCONTINENT OF LOOSE STOOL. CLEANED AND REPOSITIONED.
--- NOTE | 2022-09-10 18:48 | NUR ---
PT WAS SEEN FOR DYSPHAGIA. PT W ABLE TO SAFELY SWALLOW MS DIET WITH THIN LIQUID WITHOUT S/S OF ASPIRATION. RECOMMENDATION MS DIET WITH THIN LIQUID
--- NOTE | 2022-09-10 19:31 | NUR ---
GAVE REPORT TO THE NIGHT NURSE, PT STABLE. PASSED SWALLOW EVAL [id number]
[2022-09-11] VITALS (7 sets, daily range): BP systolic 91–157; BP diastolic 46–82
[2022-09-11] MEDS: IPRATROPIUM 0.02% 0.5 MG/2.5 ML NEBU INH SCH ×6 (00:02→19:22)
[2022-09-11] MEDS: ALBUTEROL 0.083% 2.5 MG/3 ML NEBU INH SCH ×6 (00:02→19:22)
[2022-09-11] MEDS: BLOOD GLUCOSE MONITORING 1 DEV DEV FS SCH (00:25)
[2022-09-11] MEDS: PIPERACILLIN/TAZOBACTAM 3.375 GM in DEXTROSE 5% 50 ML IV SCH ×3 (04:35→20:06)
[2022-09-11 06:06] LABS: BASOPHILS % (AUTO) 0.5 % (0.0-2.0); EOSINOPHILS # (AUTO) 0.3 K/uL (0-0.4); EOSINOPHILS % (AUTO) 2.6 % (0.0-4.0); HEMATOCRIT 33.9 % (36-52); HEMOGLOBIN 10.9 g/dL (12.0-18.0); LYMPHOCYTES # (AUTO) 1.8 K/uL (2.0-11.5); LYMPHOCYTES % (AUTO) 16.4 % (20.5-51.1); MEAN CORPUSCULAR HEMOGLOBIN 25 pg (27-31); MEAN CORPUSCULAR HGB CONC 32 g/dL (33-37); MONOCYTES # (AUTO) 0.8 K/uL (0.8-1.0); MONOCYTES % (AUTO) 7.6 % (1.7-9.3); NEUTROPHILS % (AUTO) 72.9 % (42.2-75.2); PLATELET COUNT (AUTO) 181 K/uL (140-450); RED BLOOD CELL COUNT(AUTO) 4.29 MIL/uL (4.20-6.10); RED CELL DISTRIBUTION WIDTH 16.1 % (11.6-13.7)
[2022-09-11 06:23] LABS: ANION GAP 8.5 (8-16); CARBON DIOXIDE 36.9 mmol/L (21-32); CREATININE 1.4 mg/dL (0.6-1.3); POTASSIUM 3.4 mmol/L (3.5-5.1)
--- NOTE | 2022-09-11 07:27 | NUR ---
SBAR REPORT RECEIVED FROM ENRIQUETA RN, ALL CARES ASSUMED. PT RESTING IN BED WITH EYES CLOSED, TURNING SELF FOR COMFORT. 2LPM O2 VIA NASAL CANNULA. SILVA CATHETER DRAINING YELLOW URINE TO GRAVITY. BED IN LOW AND LOCKED POSITION. CALL LIGHT WITHIN REACH.
[2022-09-11] MEDS: amLODIPine 5 MG TAB PO SCH (08:45)
[2022-09-11] MEDS: FUROSEMIDE 40 MG/4 ML VIAL IVP SCH (08:45)
[2022-09-11] MEDS: PANTOPRAZOLE 40 MG INJ VIAL IVP SCH (08:46)
[2022-09-11] MEDS ORDERED: AZIT250T11 PO (12:03)
--- NOTE | 2022-09-11 13:36 | NUR ---
PT AND RT AT BEDSIDE.
--- NOTE | 2022-09-11 13:40 | NUR ---
WITNESSED PATIENT WALKING WITH PHYSICAL THERAPY ON ROOM AIR. PATIENT SATURATION DROPPED TO 85%. PT PLACED BACK ON 2L NASAL CANNULA.
--- NOTE | 2022-09-11 19:35 | NUR ---
REPORT GIVEN TO MORIAH BAJWA, ALL CARES ENDORSED.
--- NOTE | 2022-09-11 19:45 | NUR ---
PTS CALLED PT AND SPOKE WITH RN, REMINDED PTS TO BRING PORTABLE 02 TANK FROM HOME, VERBALIZED UNDERSTANDING AND WILL CURLING MACHINE OPERATOR PT IN AM (0800)
--- NOTE | 2022-09-11 20:15 | NUR ---
PT TRANSFERRED TO TELE ROOM 111B IN STABLE CONDITION.PT ABLE TO AMBULATE FROM DOOR TO BED WITH STEADY GAIT.ON 02NC AT 2LPM,NO SOB NOTED.PERIPHERAL IV TO LT HAND INTACT.SILVA CATHETER STILL IN PLACE.DENIES PAIN. REPORT GIVEN TO ARSENIO BAJWA FOR CONTINUITY OF CARE
--- NOTE | 2022-09-11 20:40 | NUR ---
RECEIVED PATIENT FROM ICU, PATIENT IS AWAKE, ALERT AND ORIENTED X4, ABLE TO TRANSFER TO BED, GAIT STEADY. PATIENT HAS SILVA CATHETER DRAINING CLEAR URINE TO BAG, IV ACCESS SITE ON LEFT HAND G22, PATENT AND INTACT. PATIENT ON 02 @2LPM NC, DENIES SOB, DENIES PAIN UPON ASSESSMENT. CALL LIGHT WITHIN REACH. ALL SAFETY MEASURES IN PLACE.
--- NOTE | 2022-09-11 23:31 | NUR ---
PATIENT IS ASLEEP, IN NO ACUTE DISTRESS, NO SIGNS OF PAIN NOTED, PATIENT ON O2 @2LPM NC, ALL SAFETY MEASURES IN PLACE.
[2022-09-12] VITALS: BP 137/61
[2022-09-12] MEDS: ALBUTEROL 0.083% 2.5 MG/3 ML NEBU INH SCH ×3 (00:35→07:07)
[2022-09-12] MEDS: IPRATROPIUM 0.02% 0.5 MG/2.5 ML NEBU INH SCH ×3 (00:35→07:07)
[2022-09-12 04:00] VITALS: BP 141/75
[2022-09-12] MEDS: PIPERACILLIN/TAZOBACTAM 3.375 GM in DEXTROSE 5% 50 ML IV SCH (04:10)
--- NOTE | 2022-09-12 04:11 | NUR ---
SCHEDULED IV ANTIBIOTIC GIVEN ORDERED. PATIENT IS AWAKE, DENIES PAIN, DENIES SOB, BREATHING EVEN AND NON LABORED. CALL LIGHT WITHIN REACH.
--- NOTE | 2022-09-12 07:02 | NUR ---
receive the patient from the assistant shift supervisor rn in rm 111B aox4 with admitting diagnosis of respiratory failure . will continue to monitor .
--- NOTE | 2022-09-12 07:27 | NUR ---
ENDORSED PATIENT TO DAY NURSE FOR CONTINUITY OF CARE. PATIENT IN STABLE CONDITION.
[2022-09-12 07:52] VITALS: BP 125/75
--- NOTE | 2022-09-12 08:25 | NUR ---
made patient discharge teaching . connected the patient portable oxygen tank at 2 liters for home . discontinue intravenous line , cardiac herat monitor . remove the identification band . discharge the patient in a stable condition . no sign and symptoms of respiratory distress . no complain of pain at this time . brought the patinet to the lobby thru a wheelchair to a waiting private car with his
== END 2022-09-12 08:35 | disposition home or self-care (01) | DRG 133 ==
LOC: MED 05:20 → MMU 06:46 → MIC 07:50 → MTU 09-11 20:20
PROVIDERS: ADMIT Family Medicine; ATTEND Family Medicine
PROC: 5A1945Z Respiratory Ventilation, 24-96 Consecutive Hours (ICD-10-PCS; principal; 2022-09-06)
PROC: 0BH17EZ Insertion of Endotracheal Airway into Trachea, Via Natural or Artificial Opening (ICD-10-PCS; 2022-09-06)
PROC: 02HV33Z Insertion of Infusion Device into Superior Vena Cava, Percutaneous Approach (ICD-10-PCS; 2022-09-06)
PROC: B548ZZA Ultrasonography of Superior Vena Cava, Guidance (ICD-10-PCS; 2022-09-06)
DX: J96.01 Acute respiratory failure with hypoxia (principal); N17.0 Acute kidney failure with tubular necrosis; I50.33 Acute on chronic diastolic (congestive) heart failure; J18.9 Pneumonia, unspecified organism; I11.0 Hypertensive heart disease with heart failure; E87.0 Hyperosmolality and hypernatremia; E86.0 Dehydration; E78.00 Pure hypercholesterolemia, unspecified; J44.0 Chronic obstructive pulmonary disease with (acute) lower respiratory infection; E87.6 Hypokalemia; Z20.822 Contact with and (suspected) exposure to COVID-19
CPT/HCPCS: 31500; 36415; 36600; 71045; 80048; 80053; 81001; 82803; 82948; 83605; 83690; 83735; 83880; 84484; 85025; 87040; 87070; 87081; 87086; 87205; 89220; 92610; 94002; 94003; 94617; 94640; 96374; 96375; 97110; 97116; 97530; 99291; C9113; J1644; J1940; J2060; J2543; J2704; J3010; J3490; J7060; J7613; J7644; Q0092

== ENCOUNTER 2023-12-11 09:05 | Inpatient (IN) | payer OTHER ==
[~2023-12-11] VITALS: Ht 175.3 cm; Wt 113.3 kg
[~2023-12-11 09:05] MED LIST: AMLO5TAB PO; ATOR40TA PO; AZIT250T11 PO; CARV25TA PO; FURO-570 PO; ISOS30TE68 PO; LON2.5 PO; POTA10TA70 PO
[2023-12-11 09:07] VITALS: BP 145/65; PULSE 68; RESP 18; TEMP 97.1; O2SAT 98
[2023-12-11 09:46] LABS: BASOPHILS # (AUTO) 0.1 K/uL (0.00-0.22); BASOPHILS % (AUTO) 1.3 % (0.0-2.0); EOSINOPHILS # (AUTO) 0.2 K/uL (0-0.4); EOSINOPHILS % (AUTO) 1.9 % (0.0-4.0); HEMATOCRIT 42.6 % (36-52); HEMOGLOBIN 13.9 g/dL (12.0-18.0); LYMPHOCYTES # (AUTO) 3.1 K/uL (2.0-11.5); LYMPHOCYTES % (AUTO) 34.8 % (20.5-51.1); MEAN CORPUSCULAR HEMOGLOBIN 26 pg (27-31); MEAN CORPUSCULAR HGB CONC 33 g/dL (33-37); MEAN CORPUSCULAR VOLUME 80.3 fL (80-94); MONOCYTES # (AUTO) 0.7 K/uL (0.8-1.0); MONOCYTES % (AUTO) 7.3 % (1.7-9.3); NEUTROPHILS # (AUTO) 4.9 K/uL (1.8-7.7); NEUTROPHILS % (AUTO) 54.7 % (42.2-75.2); PLATELET COUNT (AUTO) 288 K/uL (140-450); RED BLOOD CELL COUNT(AUTO) 5.31 MIL/uL (4.20-6.10); RED CELL DISTRIBUTION WIDTH 16.2 % (11.6-13.7); WHITE BLOOD COUNT (AUTO) 8.9 K/uL (4.8-10.8)
[2023-12-11 09:56] LABS: ANION GAP 10.8 (8-16); CALCIUM 9.5 mg/dL (8.5-10.1); CARBON DIOXIDE 28.7 mmol/L (21-32); CREATININE 1.9 mg/dL (0.6-1.3); POTASSIUM 4.5 mmol/L (3.5-5.1)
[2023-12-11 10:03] LABS: INR 0.98 (0.8-1.2); PARTIAL THROMBOPLASTIN TIME 27.4 secs (22-35.6); PROTHROMBIN TIME 10.3 secs (10.8-13.4)
[2023-12-11 10:14] LABS: ALANINE AMINOTRANSFERASE 17 U/L (12-78); ALBUMIN 3.6 g/dL (3.4-5.0); ALKALINE PHOSPHATASE 92 U/L (50-136); ASPARTATE AMINOTRANSFERASE 16 U/L (15-37); BILIRUBIN,DIRECT 0.1 mg/dL (0.0-0.3); TOTAL BILIRUBIN 0.4 mg/dL (0.0-1.0); TOTAL PROTEIN, SERUM 8.2 g/dL (6.4-8.2)
[2023-12-11 11:02] LABS: APPEARANCE,URINE CLEAR (CLEAR); BILIRUBIN,URINE NEGATIVE (NEGATIVE); BLOOD, URINE TRACE-I (NEGATIVE); COLOR,URINE YELLOW (YELLOW); LEUKOCYTE ESTERASE ,URINE NEGATIVE (NEGATIVE); NITRITE, URINE NEGATIVE (NEGATIVE); PH,URINE 6.5 (5.0-9.0); PROTEIN,URINE NEGATIVE (NEGATIVE); UGLUCOSE NEGATIVE (NEGATIVE); UROBILINOGEN,URINE 0.2 EU/dL (0.2 - 1)
[2023-12-11] MEDS ORDERED: ISOS10TA19 PO (11:20)
[2023-12-11] MEDS ORDERED: ALLO100T21 PO (11:20)
[2023-12-11] MEDS ORDERED: ASPI-1822 PO (11:20)
[2023-12-11] MEDS ORDERED: ATOR40TA40 PO (11:20)
[2023-12-11] MEDS ORDERED: AMLO-3 PO (11:20)
[2023-12-11] MEDS ORDERED: SPIR100T46 PO (11:20)
[2023-12-11] MEDS ORDERED: FURO40TA9 PO (11:20)
[2023-12-11] MEDS ORDERED: FERR-149 PO (11:20)
[2023-12-11] MEDS ORDERED: CARV25TA2 PO (11:20)
[2023-12-11] MEDS ORDERED: FURO-570 PO (11:25)
[2023-12-11] MEDS ORDERED: ACETAMINOPHEN 325 MG TAB PO PRN (12:25)
[2023-12-11] MEDS ORDERED: HYDROcodone/APAP 5/325 MG 1 TAB TAB PO PRN (12:25)
[2023-12-11] MEDS ORDERED: ONDANSETRON 4 MG/2 ML VIAL IVP PRN (12:25)
[2023-12-11] MEDS ORDERED: ZOLPIDEM 5 MG TAB PO PRN (12:25)
[2023-12-11] MEDS: AZITHROMYCIN 500 MG in DEXTROSE 5% 250 ML IV SCH (13:00)
[2023-12-11 14:00] VITALS: PULSE 62; RESP 20; O2SAT 96
[2023-12-11 14:24] VITALS: PULSE 95
[2023-12-11 16:00] VITALS: BP 113/63; PULSE 62; PULSE 65; RESP 18; TEMP 97.3; O2SAT 96
[2023-12-11 20:00] VITALS: BP 138/70; PULSE 64; PULSE 67; PULSE 80; RESP 18; TEMP 97.2; O2SAT 97
[2023-12-11] MEDS: allopurinoL 100 MG TAB PO SCH (20:23)
[2023-12-11] MEDS: amLODIPine 5 MG TAB PO SCH (20:23)
[2023-12-11] MEDS: carvediloL 12.5 MG TAB PO SCH (20:24)
[2023-12-11] MEDS ORDERED: CARVEDILOL PO SCH (21:00)
[2023-12-12] VITALS (8 sets, daily range): BP systolic 113–134; BP diastolic 60–83; PULSE 58–88; RESP 16–20; TEMP 97.2–98.2; O2SAT 96–100
[2023-12-12 06:37] LABS: ALBUMIN 3.4 g/dL (3.4-5.0); ANION GAP 11.2 (8-16); CALCIUM 9.6 mg/dL (8.5-10.1); CARBON DIOXIDE 28.4 mmol/L (21-32); CREATININE 1.8 mg/dL (0.6-1.3); POTASSIUM 4.6 mmol/L (3.5-5.1); TOTAL BILIRUBIN 0.5 mg/dL (0.0-1.0); TOTAL PROTEIN, SERUM 7.7 g/dL (6.4-8.2)
[2023-12-12] MEDS ORDERED: NON-FORMULARY ITEM (Spironolactone 1 TAB) PO SCH (09:00)
[2023-12-12] MEDS ORDERED: ISOSORBIDE MONONITRATE 30 MG PO SCH (09:00)
[2023-12-12] MEDS: ATORVASTATIN 20 MG TAB PO SCH (09:33)
[2023-12-12] MEDS: SPIRONOLACTONE 50 MG TAB PO SCH (09:33)
[2023-12-12] MEDS: DOCUSATE SODIUM 100 MG GELCAP PO SCH (09:33)
[2023-12-12] MEDS: ASPIRIN 81 MG TAB.CHEW PO SCH (09:34)
[2023-12-12] MEDS: MECLIZINE 25 MG TAB PO SCH (09:34)
[2023-12-12] MEDS: ISOSORBIDE MONONITRATE 30 MG TABER PO SCH (09:35)
[2023-12-12] MEDS ORDERED: FURO-570 PO (16:51)
[2023-12-12] MEDS ORDERED: MECL-303 PO (16:51)
[2023-12-12] MEDS ORDERED: CARV25TA2 PO (16:51)
== END 2023-12-12 18:20 | disposition home or self-care (01) | DRG 194 ==
LOC: MED 09:05 → MMU 12:26
PROVIDERS: ADMIT Hospitalist; ATTEND Hospitalist
DX: I11.0 Hypertensive heart disease with heart failure (principal); E86.0 Dehydration; E87.1 Hypo-osmolality and hyponatremia; E66.9 Obesity, unspecified; I95.1 Orthostatic hypotension; I50.33 Acute on chronic diastolic (congestive) heart failure; Z68.36 Body mass index [BMI] 36.0-36.9, adult; Z79.899 Other long term (current) drug therapy; I25.2 Old myocardial infarction
CPT/HCPCS: 36415; 70450; 71045; 80048; 80053; 80076; 81003; 82948; 83735; 83880; 84484; 85025; 85379; 85610; 85730; 87081; 93005; 97116; 97530; 99285; J0456; J1644; J7060; J8597